=== PATIENT | female | born 1985 | race Caucasian/White ===

== ENCOUNTER 2021-03-24 19:14 | Emergency (ER) | payer OTHER ==
[~2021-03-24 19:14] MED LIST: PREDNISONE 20MG20 MG PO; TRIAMCINOLONE 080 GM TOP
[2021-03-24 20:22] LABS: BASOPHIL 0.9 % (0-2); EOSINOPHIL 1.3 % (0-5); HCT 40.3 % (37.0-47.0); HGB 13.5 g/dl (12.5-16.0); LYMPHOCYTE 25.3 % (15-48); MCH 28.2 pg (25.0-31.0); MCHC 33.5 g/dL (32.0-36.0); MCV 84.1 fL (78.0-100.0); MONOCYTE 7.1 % (0-12); MPV 11.8 fL (6.0-9.5); NEUTROPHIL 65.2 % (41-80); NRBC 0; PLT 241 K/uL (150-400); RBC 4.79 M/uL (4.20-5.40); RDW 12.3 % (11.5-14.0); WBC 8.5 K/uL (4.0-10.5)
[2021-03-24 20:35] LABS: ALBUMIN 4.1 g/dL (3.4-5.0); BILIRUBIN - TOTAL 0.3 mg/dL (0.2-1.0); BUN/CREAT RATIO (CALC) 16.7 RATIO; CREATININE 0.9 mg/dL (0.51-0.95); GLOBULIN (CALCULATION) 3.8 g/dL; POTASSIUM 3.9 mmol/L (3.5-5.1); TOTAL PROTEIN 7.9 g/dL (6.4-8.2)
== END 2021-03-24 21:56 | disposition home or self-care (01) ==
LOC: FER 19:14
PROVIDERS: Physician Assistant
DX: R07.89 Other chest pain (principal); Z88.6 Allergy status to analgesic agent; Z91.041 Radiographic dye allergy status; Z98.890 Other specified postprocedural states
CPT/HCPCS: 36415; 71045; 80053; 84484; 85025; 93005

== ENCOUNTER 2021-04-04 12:46 | Emergency (ER) | payer OTHER ==
[2021-04-04 14:32] LABS: BILIRUBIN NEGATIVE (NEGATIVE); BLOOD NEGATIVE Ery/uL (NEGATIVE); COLOR YELLOW (YELLOW); GLUCOSE (U) NORMAL (NORMAL); LEUKOCYTES NEGATIVE Leu/uL (NEGATIVE); NITRITE NEGATIVE (NEGATIVE); PROTEIN NEGATIVE (NEGATIVE); UROBILINOGEN 0.2 mg/dL (0.2-1.0); pH 7.5 (5.0-9.0)
[2021-04-04 14:34] LABS: BASOPHIL 0.5 % (0-2); EOSINOPHIL 0.3 % (0-5); HCT 44.2 % (37.0-47.0); HGB 14.8 g/dl (12.5-16.0); LYMPHOCYTE 10.8 % (15-48); MCH 28.6 pg (25.0-31.0); MCHC 33.5 g/dL (32.0-36.0); MCV 85.3 fL (78.0-100.0); MPV 11.1 fL (6.0-9.5); NEUTROPHIL 83.8 % (41-80); NRBC 0; PLT 247 K/uL (150-400); RBC 5.18 M/uL (4.20-5.40); RDW 12.5 % (11.5-14.0)
[2021-04-04 14:35] LABS: WBC 11.1 K/uL (4.0-10.5)
[2021-04-04 14:36] LABS: CLARITY HAZY (CLEAR)
[2021-04-04 14:52] LABS: ALBUMIN 4.1 g/dL (3.4-5.0); BILIRUBIN - TOTAL 0.4 mg/dL (0.2-1.0); BUN/CREAT RATIO (CALC) 15.2 RATIO; CREATININE 0.79 mg/dL (0.51-0.95); GLOBULIN (CALCULATION) 4.2 g/dL; POTASSIUM 4.5 mmol/L (3.5-5.1); TOTAL PROTEIN 8.3 g/dL (6.4-8.2)
[2021-04-04] MEDS ORDERED: MEDROL 4MG DOSEP4 MG PO (17:21)
[2021-04-04] MEDS ORDERED: CYCLOBENZAPRINE10 MG PO (17:21)
== END 2021-04-04 17:30 | disposition home or self-care (01) ==
LOC: FER 12:46
PROVIDERS: Emergency Medicine
DX: G43.909 Migraine, unspecified, not intractable, without status migrainosus (principal); Z88.6 Allergy status to analgesic agent
CPT/HCPCS: 36415; 80053; 81003; 85025; J1100; J1200; J2405; J7030